=== PATIENT | male | born 1960 | race Caucasian/White ===

== ENCOUNTER → 2018-08-05 | Outpatient (CLI) | payer MEDICARE, OTHER ==
[2018-08-05 11:14] LABS: Basophils # (A) 0.1 k/uL (0-0.2); Basophils % (A) 1 %; Eosinophils # (A) 0.1 k/uL (0-0.7); Eosinophils % (A) 1 %; HCT 47.2 % (39.0-53.0); HGB 15.1 gm/dL (13.0-17.5); Lymphocytes # (A) 2.7 k/uL (1.0-4.8); Lymphocytes % (A) 34 %; MCHC 32.1 g/dL (31.0-37.0); MCV 93.4 fL (80.0-100.0); Mean Platelet Volume 8.1; Monocytes # (A) 0.7 k/uL (0-1.0); Monocytes % (A) 9 %; Neutrophils # (A) 4.3 k/uL (1.3-7.7); Neutrophils % (A) 54 %; Platelet Count 251 k/uL (150-450); RBC 5.05 m/uL (4.30-5.90); WBC 8.1 k/uL (3.8-10.6)
== END | disposition home or self-care (01) ==
LOC: LABPAT 10:33
PROVIDERS: ATTEND Surgery
DX: Z01.818 Encounter for other preprocedural examination (principal); K43.6 Other and unspecified ventral hernia with obstruction, without gangrene; Z01.812 Encounter for preprocedural laboratory examination
CPT/HCPCS: 85025; 86850; 86900; 86901; 93005

== ENCOUNTER → 2018-08-08 | Day surgery (SDC) | payer MEDICARE, OTHER ==
[2018-08-05 13:30] VITALS: BMI 32.3
[~2018-08-08] MED LIST: PROPOFOL 10 MG/ML 20 ML VIAL IV ONE
[2018-08-08 08:15] VITALS: TEMP 98.4
[2018-08-08] MEDS: LACTATED RINGERS 1,000 ML IV SCH ×2 (08:24→08:53)
--- NOTE | 2018-08-08 09:06 | P.GSHP ---
History of Present Illness H&P Date: 08/08/18 Chief Complaint: GI bleed, hemorrhoids This is a 4-year-old male who presents today for colonoscopy. Patient issues of rectal bleeding. He states he has hemorrhoids. Past Medical History Past Medical History: Fibromyalgia, GERD/Reflux, Hypertension, Rheumatoid Arthritis (RA) Additional Past Medical History / Comment(s): abdominal hernia History of Any Multi-Drug Resistant Organisms: None Reported Past Surgical History: Orthopedic Surgery, Tonsillectomy Additional Past Surgical History / Comment(s): PATRICK SHOULDERS,L FOOT NEUROMA,patrick lasik eye surgeries Past Anesthesia/Blood Transfusion Reactions: No Reported Reaction Additional Past Anesthesia/Blood Transfusion Reaction / Comment(s): no hx blood transfusion Smoking Status: Former smoker - Past Family History Mother Family Medical History: Cancer Additional Family Medical History / Comment(s): skin Father Family Medical History: Cancer Additional Family Medical History / Comment(s): skin Medications and Allergies Home Medications Medication Instructions Recorded Confirmed Type Celecoxib [CeleBREX] 200 mg PO BID 07/09/13 08/05/18 History Lisinopril [Prinivil] 20 mg PO QAM 07/09/13 08/08/18 History Omeprazole [PriLOSEC] 20 mg PO BID 07/09/13 08/08/18 History Atorvastatin [Lipitor] 40 mg PO DAILY 08/05/18 08/08/18 History Certolizumab Pegol [Cimzia] 400 mg SQ Q30D 08/05/18 08/08/18 History Gabapentin [Neurontin] 300 - 600 mg PO TID PRN 08/05/18 08/08/18 History Milnacipran HCl [Savella] 50 mg PO BID 08/05/18 08/08/18 History Allergies Allergy/AdvReac Type Severity Reaction Status Date / Time No Known Allergies Allergy Verified 08/08/18 08:12 Surgical - Exam Vital Signs Temp Pulse Resp BP Pulse Ox 98.4 F 87 16 133/95 97 08/08/18 08:13 08/08/18 08:13 08/08/18 08:13 08/08/18 08:13 08/08/18 08:13 - General well developed, well nourished, no distress - Eyes PERRL - ENT normal pinna - Neck no masses - Respiratory normal expansion - Cardiovascular Rhythm: regular - Abdomen Abdomen: soft, non tender Assessment and Plan Assessment: GI bleed History of hemorrhoids We'll perform colonoscopy.
--- NOTE | 2018-08-08 09:20 | P.OP ---
Date of Procedure: 08/08/18 Preoperative Diagnosis: GI bleed Postoperative Diagnosis: Internal and external hemorrhoids severe Diverticulosis Procedure(s) Performed: Colonoscopy Anesthesia: GETA Pathology: none sent Condition: stable Disposition: PACU Description of Procedure: The patient's placed on the endoscopy table in the lateral position. He receiv ed IV sedation. Patient had severe internal and external hemorrhoids. The prostate was symmetric without nodules. The flexible colonoscope was then placed patient anus and passed throughout the entire colon. The ileocecal valve was visualized. The cecum, ascending and transverse colon appeared normal. In the descending and sigmoid: there is extensive diverticular changes. The scope was then brought back into the rectum. This appeared normal. Scope was withdrawn and the internal and external hemorrhoids were noted again. There is no active GI bleed. It was presumed that patient would've have bleeding from his hemorrhoids.
[2018-08-08 09:39] VITALS: BP 118/84; PULSE 83; RESP 18
== END ==
LOC: ORWHC2ENDO 07:59
PROVIDERS: ATTEND Surgery
DX: K64.4 Residual hemorrhoidal skin tags (principal); K64.8 Other hemorrhoids; K57.30 Diverticulosis of large intestine without perforation or abscess without bleeding; K92.2 Gastrointestinal hemorrhage, unspecified; K21.9 Gastro-esophageal reflux disease without esophagitis; I10 Essential (primary) hypertension; M79.7 Fibromyalgia; M06.9 Rheumatoid arthritis, unspecified; Z87.891 Personal history of nicotine dependence; Z79.899 Other long term (current) drug therapy; E78.5 Hyperlipidemia, unspecified
CPT/HCPCS: 45378; J2704

== ENCOUNTER 2018-08-13 07:23 | Day surgery (SDC) | payer MEDICARE, OTHER ==
[2018-08-05 11:59] VITALS: BMI 32.3
[~2018-08-13 07:23] MED LIST changes: +DEXAMETHASONE SOD PHOSPHATE 10 MG/ML 1 ML VIAL IV ONE; +HEPARIN SODIUM,PORCINE 5,000 UNIT/ML 1 ML VIAL SQ ONE; +HYDROmorphone 0.5 MG/0.5 ML SYRINGE IVP PRN; +LIDOCAINE 1% 20 ML VIAL (10MG/ML) FOR IV START INTRADERMA PRN; +MIDAZOLAM 2 MG/2 ML VIAL IV PRN; +ONDANSETRON 4 MG/2 ML VIAL IVP ONE; -PROPOFOL 10 MG/ML 20 ML VIAL IV ONE; +SCOPOLAMINE 1.5MG/72HR PATCH TRANSDERM ONE; +ceFAZolin IN SWFI 2 GM/20 ML SYRINGE IVP ONE
[2018-08-13] MEDS: LACTATED RINGERS 1,000 ML IV SCH ×2 (08:37→13:27)
--- NOTE | 2018-08-13 08:58 | P.GSHP ---
History of Present Illness H&P Date: 08/13/18 Chief Complaint: Incarcerated ventral hernia This is a 58-year-old male has developed an incarcerated ventral hernia. Patient has a 3 cm mass located above his umbilicus. The mass is firm and tender. Past Medical History Past Medical History: Fibromyalgia, GERD/Reflux, Hypertension, Rheumatoid Arthritis (RA) Additional Past Medical History / Comment(s): abdominal hernia History of Any Multi-Drug Resistant Organisms: None Reported Past Surgical History: Orthopedic Surgery, Tonsillectomy Additional Past Surgical History / Comment(s): PATRICK SHOULDERS,L FOOT NEUROMA,patrick lasik eye surgeries Past Anesthesia/Blood Transfusion Reactions: No Reported Reaction Additional Past Anesthesia/Blood Transfusion Reaction / Comment(s): no hx blood transfusion Smoking Status: Former smoker - Past Family History Mother Family Medical History: Cancer, CVA/TIA Additional Family Medical History / Comment(s): skin Father Family Medical History: Cancer, CVA/TIA Additional Family Medical History / Comment(s): skin Medications and Allergies Home Medications Medication Instructions Recorded Confirmed Type Celecoxib [CeleBREX] 200 mg PO BID 07/09/13 08/13/18 History Lisinopril [Prinivil] 20 mg PO QAM 07/09/13 08/13/18 History Omeprazole [PriLOSEC] 20 mg PO BID 07/09/13 08/13/18 History Atorvastatin [Lipitor] 40 mg PO DAILY 08/05/18 08/13/18 History Certolizumab Pegol [Cimzia] 400 mg SQ Q30D 08/05/18 08/13/18 History Gabapentin [Neurontin] 300 - 600 mg PO TID PRN 08/05/18 08/13/18 History Milnacipran HCl [Savella] 50 mg PO BID 08/05/18 08/13/18 History Allergies Allergy/AdvReac Type Severity Reaction Status Date / Time No Known Allergies Allergy Verified 08/08/18 08:12 Surgical - Exam Vital Signs Temp Pulse Resp BP Pulse Ox 97.1 F L 86 16 125/90 97 08/13/18 08:16 08/13/18 08:16 08/13/18 08:16 08/13/18 08:16 08/13/18 08:16 - General well developed, well nourished, no distress - Eyes PERRL - ENT normal pinna - Neck no masses - Respiratory normal expansion - Cardiovascular Rhythm: regular - Abdomen 3 cm incarcerated ventral hernia located above the umbilicus. Abdomen: soft, non tender Assessment and Plan Assessment: Incarcerated ventral hernia. We'll perform laparoscopic robotic-assisted repair.
[2018-08-13] MEDS ORDERED: ROCURONIUM BROMIDE 10 MG/ML 10 ML VIAL IV ONE (09:15)
[2018-08-13] MEDS ORDERED: LIDOCAINE 1% INJ 10MG/ML (20 ML MDV) ONE (09:15)
[2018-08-13] MEDS ORDERED: fentaNYL (PF) 50 MCG/ML 2 ML AMP ONE (09:15)
[2018-08-13] MEDS ORDERED: PHENYLEPHRINE-0.9% NACL SYG 1 MG/10 ML SYRINGE ONE (09:15)
[2018-08-13] MEDS ORDERED: ROPIVACAINE 5 MG/ML 30 ML VIAL ONE (09:15)
[2018-08-13] MEDS ORDERED: PROPOFOL 10 MG/ML 20 ML VIAL IV ONE (09:15)
[2018-08-13] MEDS ORDERED: MIDAZOLAM 2 MG/2 ML VIAL ONE (09:15)
[2018-08-13] MEDS ORDERED: GLYCOPYRROLATE 0.2 MG/ML 2 ML VIAL ONE (09:15)
[2018-08-13] MEDS ORDERED: ePHEDrine SULFATE/0.9% NACL/PF 50 MG/5 ML SYRINGE IV ONE (09:15)
[2018-08-13] MEDS ORDERED: SUCCINYLCHOLINE CHLORIDE 100 MG/5 ML SYR IV ONE (09:15)
[2018-08-13] MEDS ORDERED: HYDROmorphone (PF) 1 MG/ML ONE (09:15)
[2018-08-13] MEDS ORDERED: NEOSTIGMINE 1 MG/ML 10 ML VIAL ONE (09:15)
[2018-08-13] MEDS ORDERED: BUPIVACAIN-EPI 0.5%-1:200,000 30 ML VIAL SQ ONE (09:49)
[2018-08-13 10:37] VITALS: TEMP 97
--- NOTE | 2018-08-13 10:48 | P.OP ---
Date of Procedure: 08/13/18 Preoperative Diagnosis: Incarcerated ventral hernia Postoperative Diagnosis: Incarcerated ventral hernia Procedure(s) Performed: Laparoscopic robotic-assisted repair of incarcerated ventral hernia Excision of incarcerated fat Anesthesia: DEANNE Surgeon: Joel Lopez Estimated Blood Loss (ml): 5 Pathology: other (Incarcerated fat) Condition: stable Disposition: PACU Description of Procedure: The patient was placed on the operating table in the supine position. He recei anderson general anesthesia. His abdomen was prepped and draped usual fashion. Using a 5 mm optical trocar under direct visualization the peritoneal cavity was entered in the left upper quadrant. The abdomen was then insufflated. The laparoscope was placed back into the perineal cavity. Next a 8 mm robotic trocar was placed in the left lower quadrant and a 12 mm robotic trocar was placed in the left lateral position. The original 5 mm trocar was exchanged for a 8 mm robotic trocar. The patient's placed in the left side up position. And the patient was docked to the robot. The incarcerated ventral hernia was visualized. Using hook cautery the peritoneum over the ventral hernia was excised. The incarcerated fat was dissected free and sent to pathology. The fascial opening was repaired using 0V LOC suture. Next a piece of 11 cm round ventral light ST mesh was placed into the. Cavity and secured with 2 OV lock suture. The patient was undocked the robot. The needles were retrieved. The fascia of the 12 mm trocar site was closed with 0 Ethibond suture. Skin was closed interrupted 3-0 Monocryl suture. Dermabond dressings was applied. Patient tolerated procedure well and was sent to recovery room stable condition.
--- NOTE | 2018-08-13 11:01 | P.ANPRN ---
Procedure Note - Anesthesia - Nerve Block Performed Bilateral Transversus Abdominis Time Out Performed: Yes Date of Procedure: 08/13/18 Location of Patient Procedure: PreOp Indication: Acute Post-Operative Pain, Dx/Pain Location (Abdominal pain) Specifically requested for management of pain by DrNaveed: Joel Lopez Sedation Type: Sedate with meaningful contact maintained Preparation: Sterile Prep Position: Supine Catheter: None Needle Types: Pajunk (100 mm) Needle Gauge: 21 Technique: Ultrasound Injectate: 0.5% Ropivacaine (see comment for volume) (30 cc, (15 cc on each side) Blood Aspirated: No Pain Paresthesia on Injection Noted: No Resistance on Injection: Normal Events: Uneventful and Well Tolerated
[2018-08-13 11:20] VITALS: RESP 16
[2018-08-13] MEDS ORDERED: HYDROcodone/APAP 5-325MG 1 EACH TAB PO ONE (11:25)
[2018-08-13 12:19] VITALS: BP 103/70; PULSE 89
== END 2018-08-13 13:37 | disposition home or self-care (01) ==
LOC: ORWHC2ENDO 07:23
PROVIDERS: ATTEND Surgery
DX: K43.6 Other and unspecified ventral hernia with obstruction, without gangrene (principal); I10 Essential (primary) hypertension; K21.9 Gastro-esophageal reflux disease without esophagitis; M06.9 Rheumatoid arthritis, unspecified; M79.7 Fibromyalgia; Z87.891 Personal history of nicotine dependence; Z79.899 Other long term (current) drug therapy; Z80.8 Family history of malignant neoplasm of other organs or systems
CPT/HCPCS: 64486; 88302; 49653; C1781; J2250; J1644; J1100; J2710; J2405; J2001; J3010; J1170 ×2; J2795; J2370; J0330; J2704; 86850; 86900; 86901

== ENCOUNTER 2018-09-12 06:59 | Day surgery (SDC) | payer MEDICARE, OTHER ==
[2018-09-05 13:54] VITALS: BMI 31.6
[~2018-09-12 06:59] MED LIST changes: +LACTATED RINGERS 1,000 ML IV SCH; -MIDAZOLAM 2 MG/2 ML VIAL IV PRN; +NA PHOS,M-B/NA PHOS,DI-BA 133 ML ENEMA RECTAL ONE; +Pre Op ABX Message 1 EACH MISC MISCELLANE ONE; -ceFAZolin IN SWFI 2 GM/20 ML SYRINGE IVP ONE
[2018-09-12 07:29] LABS: Glucose,Whole Blood 111 mg/dL (75-99)
[2018-09-12 07:33] VITALS: TEMP 97
--- NOTE | 2018-09-12 08:15 | P.GSHP ---
History of Present Illness H&P Date: 09/12/18 Chief Complaint: Internal and external hemorrhoids This is a 58-year-old male who presents today for internal and external hemorrhoidectomy. Patient's had complaints of rectal bleeding, pain and itching. Past Medical History Past Medical History: GERD/Reflux, Hypertension, Rheumatoid Arthritis (RA) History of Any Multi-Drug Resistant Organisms: None Reported Past Surgical History: Orthopedic Surgery, Tonsillectomy Additional Past Surgical History / Comment(s): PATRICK SHOULDERS,L FOOT NEUROMA,patrick lasik eye surgeries, ventral hernia surgery 07/2018 Past Anesthesia/Blood Transfusion Reactions: No Reported Reaction Smoking Status: Former smoker - Past Family History Brother(s) Family Medical History: Cancer Father Family Medical History: Cancer, Deep Vein Thrombosis (DVT), Pulmonary Embolus Mother Family Medical History: Cancer Medications and Allergies Home Medications Medication Instructions Recorded Confirmed Type Celecoxib [CeleBREX] 200 mg PO BID 07/09/13 09/12/18 History Lisinopril [Prinivil] 20 mg PO QAM 07/09/13 09/12/18 History Omeprazole [PriLOSEC] 20 mg PO BID 07/09/13 09/12/18 History Atorvastatin [Lipitor] 40 mg PO DAILY 08/05/18 09/12/18 History Certolizumab Pegol [Cimzia] 400 mg SQ Q30D 08/05/18 09/12/18 History Gabapentin [Neurontin] 300 - 600 mg PO TID PRN 08/05/18 09/12/18 History Milnacipran HCl [Savella] 50 mg PO BID 08/05/18 09/12/18 History HYDROcodone/APAP 5-325MG [Wallback 1 tab PO Q6HR PRN #10 tab 08/13/18 09/12/18 Rx 5-325] Allergies Allergy/AdvReac Type Severity Reaction Status Date / Time No Known Allergies Allergy Verified 09/12/18 07:10 Surgical - Exam Vital Signs Temp Pulse Resp BP Pulse Ox 97 F L 90 16 119/92 98 09/12/18 07:30 09/12/18 07:30 09/12/18 07:30 09/12/18 07:30 09/12/18 07:30 - General well developed, well nourished, no distress - Eyes PERRL - ENT normal pinna - Neck no masses - Respiratory normal expansion - Cardiovascular Rhythm: regular - Abdomen Abdomen: soft, non tender Results - Labs Abnormal Lab Results - Last 24 Hours (Table) 09/12/18 Range/Units 07:28 POC Glucose (mg/dL) 111 H (75-99) mg/dL Assessment and Plan Assessment: Internal and external hemorrhoids. We'll perform colonoscopy.
[2018-09-12] MEDS ORDERED: LACTATED RINGERS 1,000 ML IV ONE (08:25)
[2018-09-12] MEDS ORDERED: fentaNYL (PF) 50 MCG/ML 2 ML AMP ONE (08:28)
[2018-09-12] MEDS ORDERED: KETOROLAC 30 MG/ML 1 ML VIAL ONE (08:28)
[2018-09-12] MEDS ORDERED: PROPOFOL 10 MG/ML 20 ML VIAL IV ONE (08:28)
[2018-09-12] MEDS ORDERED: KETAMINE 10 MG/ML 20 ML VIAL ONE (08:28)
[2018-09-12] MEDS ORDERED: MIDAZOLAM 2 MG/2 ML VIAL ONE (08:28)
[2018-09-12] MEDS ORDERED: BUPIVACAINE (PF) 0.5% 30 ML VIAL SQ ONE ×2 (08:46→09:00)
[2018-09-12] MEDS ORDERED: GELATIN SPONGE,ABSORB (LARGE) 1 EACH SPONGE TOPICAL ONE (09:04)
[2018-09-12] MEDS ORDERED: LIDOCAINE 1%-EPI 1:100,000 30 ML VIAL SQ ONE (09:21)
--- NOTE | 2018-09-12 09:45 | P.OP ---
Date of Procedure: 09/12/18 Preoperative Diagnosis: Internal and external hemorrhoids Postoperative Diagnosis: Severe internal and external hemorrhoids Procedure(s) Performed: Internal and Hemorrhoidectomy Anesthesia: MAC, local Surgeon: Joel Lopez Estimated Blood Loss (ml): 10 Pathology: other (Internal and external hemorrhoids) Condition: stable Disposition: PACU Description of Procedure: Patient's placed on the operative table in the prone position. He received IV sedation. His anus was prepped and draped usual sterile fashion. She has severe internal and external hemorrhoids with prolapse of internal hemorrhoids. The anal retractors placed and anus. The left lateral hemorrhoidal column was then removed using the Harmonic scissors. The right anterior and right posterior hemorrhoidal columns were excised in identical fashion using the Harmonic scissors. The wound was packed for hemostasis. Any bleeding points were coagulated using electrocautery. A piece of Gelfoam was placed in the patient's anus. Patient top she will was sent to recovery room stable condition.
[2018-09-12 09:51] VITALS: BP 106/79; PULSE 80; RESP 18
== END 2018-09-12 10:20 | disposition home or self-care (01) ==
LOC: OR 06:59
PROVIDERS: ATTEND Surgery
DX: K64.8 Other hemorrhoids (principal); K64.4 Residual hemorrhoidal skin tags; I10 Essential (primary) hypertension; M06.9 Rheumatoid arthritis, unspecified; Z79.891 Long term (current) use of opiate analgesic; Z79.899 Other long term (current) drug therapy
CPT/HCPCS: 88304; 46260; J2250; J1644; J1100; J2405; J3010; J1885; J2704

== ENCOUNTER → 2019-09-18 | Outpatient (CLI) | payer MEDICARE, OTHER ==
--- NOTE | 2019-09-18 08:32 | CTL ---
EXAMINATION TYPE: CT Low Dose Lung DATE OF EXAM ORDERED: 09/18/2019 HISTORY: Long-term tobacco use. Lung cancer screening CT DLP: 121.[address] CTDI: 3.2 mGy Automated exposure control for dose reduction was used. SCREENING VISIT: First visit COMPARISON: Chest x-ray July 17, 2011. TECHNIQUE: Low dose computed tomography scan was performed through the chest at 1 mm thick sections a nd reconstructed images in the coronal plane at [address] DIAGNOSTIC QUALITY: Satisfactory FINDINGS: LUNG NODULES: Present, detailed below: There is 7 x 4 mm spiculated nodule or scarring axial image 150 right midlung periphery. On sagittal images this more lines with adjacent linear scarring favoring postinflammatory. LUNGS: COPD: Severity: Mild to moderate Fibrosis: Severity: Mild scattered Lymph nodes: No greater than 1 cm Other findings: None BILATERAL PLEURAL SPACE: Effusion: None Calcification: None Thickening: None Pneumothorax: None HEART: Heart Size: None Coronary calcification: Mild to moderate in the LAD Pericardial effusion: None OTHER FINDINGS: Upper abdomen: None Bony thorax: Mild to moderate multilevel anterior spurring Supraclavicular region: None Other: None IMPRESSION: Mild to moderate emphysematous changes with mild scarring. There is 7.1 x 4.3 mm spiculat ed nodule or nodular scarring. FOLLOW UP CT CHEST RECOMMENDATION: Annual low-dose lung screening CT CT LUNG RAD: Lung-Rad 2 Benign Appearance or Behavior
== END | disposition home or self-care (01) ==
LOC: RADCTMAIN 07:53
PROVIDERS: ATTEND Family Medicine
DX: Z12.2 Encounter for screening for malignant neoplasm of respiratory organs (principal); Z87.891 Personal history of nicotine dependence

== ENCOUNTER → 2019-10-01 | Outpatient (CLI) | payer MEDICARE, OTHER ==
--- NOTE | 2019-10-01 08:55 | US ---
EXAMINATION TYPE: US duplex aorta DATE OF EXAM: 10/01/2019 COMPARISON: NONE CLINICAL HISTORY: Z87.891 HX OF SMOKING. History of smoking EXAM MEASUREMENTS: Abdominal Aorta: Proximal: obscured Mid: 2.1 x 2.4cm Distal: 1.6 x 1.7cm Right Iliac: 1.0 x 1.5cm Left Iliac: 1.0 x 1.5cm IMPRESSION: 1. Abdominal aorta as visualized is unremarkable. Proximal portion obscured.
== END | disposition home or self-care (01) ==
LOC: RADUSWWP 08:04
PROVIDERS: ATTEND Family Medicine
DX: Z09 Encounter for follow-up examination after completed treatment for conditions other than malignant neoplasm (principal); Z87.891 Personal history of nicotine dependence
CPT/HCPCS: 93979

== ENCOUNTER → 2020-07-06 | Outpatient (CLI) | payer MEDICARE, OTHER ==
--- NOTE | 2020-07-06 09:12 | CT ---
EXAMINATION TYPE: CT chest w con DATE OF EXAM: 07/06/2020 COMPARISON: 09/18/2019 HISTORY: lung nodule CT DLP: 752 mGycm, Automated exposure control for dose reduction was used. CONTRAST: Performed injected with 100 mL of Isovue 300. TECHNIQUE: Axial images were obtained at 5 mm thick sections. Reconstructed images are reviewed on Mobile[employer] computer in the coronal plane. FINDINGS: Portion of the thyroid visualized is normal. No suspicious lung nodules or focal infiltrates are present. Previous right peripheral midlung densit y is not identified currently and appears to result. No enlarged mediastinal or hilar adenopathy is evident. The ascending aorta diameter at the level o f the main pulmonary artery is 3.1 cm. The main pulmonary artery diameter at the bifurcation is 2.[address] sections are obtained through the upper abdomen. Abdomen is essentially unremarkable. IMPRESSIONS: 1. No persistent nodules. 2. CT chest within normal limits. 3. Low-dose CT chest screening should be performed on schedule.
== END | disposition home or self-care (01) ==
LOC: RADCTMAIN 07:45
PROVIDERS: ATTEND Family Medicine
DX: R91.1 Solitary pulmonary nodule (principal)
CPT/HCPCS: 71260; Q9967

== ENCOUNTER → 2023-11-20 | Outpatient (CLI) | payer OTHER ==
[2023-11-20 20:24] LABS: Basophils # (A) 0.06 X 10*3/uL (0.00-0.10); Basophils % (A) 0.8 %; Eosinophils # (A) 0.11 X 10*3/uL (0.04-0.35); Eosinophils % (A) 1.4 %; HCT 47.1 % (39.6-50.0); HGB 15.6 g/dL (13.0-17.0); Lymphocytes # (A) 2.83 X 10*3/uL (0.90-5.00); Lymphocytes % (A) 36.8 %; MCHC 33.1 g/dL (32.0-37.0); MCV 96.7 FL (80.0-97.0); Mean Platelet Volume 11.7 FL (9.5-12.2); Monocytes # (A) 0.89 X 10*3/uL (0.20-1.00); Monocytes % (A) 11.6 %; NRBC Per 100 WBC 0 X 10*3/uL (0.00-0.01); Neutrophils # (A) 3.77 X 10*3/uL (1.80-7.70); Platelet Count 271 X 10*3/uL (140-440); RBC 4.87 X 10*6/uL (4.40-5.60); RDW 13.2 % (11.5-14.5); WBC 7.69 X 10*3/uL (4.50-10.00)
[2023-11-20 22:13] LABS: ALT 23 U/L (10-49); AST 20 U/L (14-35); Albumin 4.5 g/dL (3.8-4.9); Albumin/Globulin Ratio 2.05 Ratio (1.60-3.17); Alkaline Phosphatase 72 U/L (41-126); BUN/Creat Ratio 14.78 Ratio (12.00-20.00); Blood Urea Nitrogen 13.3 mg/dL (9.0-27.0); Calcium 9.8 mg/dL (8.7-10.3); Carbon Dioxide 24.6 mmol/L (21.6-31.8); Chloride 104 mmol/L (96-109); Globulin 2.2 g/dL (1.6-3.3); Glucose 93 mg/dL (70-110); LDL Cholesterol,Calculated 69.1 mg/dL (0.0-131.0); PSA Annual Screen 0.887 ng/mL (0.000-4.000); Potassium 5.4 mmol/L (3.5-5.5); Sodium 139 mmol/L (135-145); Total Bilirubin 0.7 mg/dL (0.3-1.2); Total Protein 6.7 g/dL (6.2-8.2); VLDL Calculation 17.74 mg/dL (5.00-40.00)
== END | disposition home or self-care (01) ==
LOC: LABWHC1 11:44
PROVIDERS: ATTEND Family Medicine
DX: Z12.5 Encounter for screening for malignant neoplasm of prostate (principal); I10 Essential (primary) hypertension; E55.9 Vitamin D deficiency, unspecified
CPT/HCPCS: 36415; 80053; 80061; 82306; 85025